=== PATIENT | male | born 1950 | race Caucasian/White ===

== ENCOUNTER → 2016-11-17 | Outpatient (CLI) | payer BC | LOC: RAD 08:55 | DX: M79.672 Pain in left foot (principal) ==

== ENCOUNTER → 2017-01-12 | Outpatient (CLI) | payer BC, OTHER | LOC: RAD 08:32 | DX: M70.51 Other bursitis of knee, right knee (principal); M25.561 Pain in right knee ==

== ENCOUNTER → 2019-07-28 | Outpatient (CLI) | payer OTHER | LOC: RAD 12:33 | DX: R05 Cough (principal); Z98.890 Other specified postprocedural states ==

== ENCOUNTER → 2019-08-09 | Outpatient (CLI) | payer OTHER | LOC: RAD 08:18 | DX: J18.1 Lobar pneumonia, unspecified organism (principal) ==

== ENCOUNTER → 2019-08-17 | Outpatient (CLI) | payer OTHER | LOC: RAD 08:56 | DX: R06.02 Shortness of breath (principal); R50.9 Fever, unspecified ==